=== PATIENT | male | born 1960 | race Caucasian/White ===

== ENCOUNTER 2022-06-20 14:30 | Outpatient (RCR) | payer BC, SELFPAY | END 2022-07-09 09:10 | disposition home or self-care (01) | LOC: ANHDMC 14:30 | PROVIDERS: PCP Internal Medicine; Visit Provider Internal Medicine Endocrinology, Diabetes & Metabolism | DX: E11.65 Type 2 diabetes mellitus with hyperglycemia (principal); Z71.89 Other specified counseling | CPT/HCPCS: G0108; G0109 ==

== ENCOUNTER 2022-10-11 14:12 | Outpatient (RCR) | payer BC, SELFPAY | END 2022-11-09 13:23 | disposition home or self-care (01) | LOC: ANHDMC 14:12 | PROVIDERS: PCP Internal Medicine; Visit Provider Internal Medicine Endocrinology, Diabetes & Metabolism | DX: E11.65 Type 2 diabetes mellitus with hyperglycemia (principal); Z71.89 Other specified counseling | CPT/HCPCS: G0109 ==

== ENCOUNTER 2024-09-03 00:27 | Day surgery (SDC) | payer BC, SELFPAY ==
[2024-08-17 12:18] VITALS: BMI 25.1
[2024-09-03 06:21] VITALS: BP 142/83; PULSE 61; RESP 18; TEMP 36.3; O2SAT 100
[2024-09-03 06:33] VITALS: BMI 25.0
--- NOTE | 2024-09-03 06:35 | SUR.PREOP ---
Patients blood glucose is 82. Patient has continuous glucose monitor and used phone for accucheck.
[2024-09-03] MEDS: LACTATED RINGERS 1,000 ML 150 ML IV CONT (06:46)
--- NOTE | 2024-09-03 07:02 | P.PNAN_ITS ---
Anes - Initial Pre Proc Eval Procedure: Operation Date: 09/03/24 07:30 Proposed Procedures p Esophagogastroduodenoscopy - Juancarlos Michaels MD Date/Time: 09/03/24 07:02 Surgeon: Juancarlos Michaels MD Pre Op Diagnosis: GERD Patient Data Age: 64 Gender: M Height: 1.83 m Weight: 83.9 kg Last Vital Signs Temp 36.3 C L 09/03/24 06:21 Pulse 61 09/03/24 06:21 Resp 18 09/03/24 06:21 BP 142/83 H 09/03/24 06:21 Pulse Ox 100 09/03/24 06:21 O2 Del Method Room Air 09/03/24 06:21 Allergies Allergy/AdvReac Type Severity Reaction Status Date / Time adhesive Allergy Unknown unknown Verified 09/03/24 06:31 Home Medications ?Medication ?Instructions ?Recorded ?Confirmed ?Type allopurinol 100 mg tablet 100 mg PO DAILY 12/03/19 09/03/24 History fenofibric acid (choline) 135 mg 135 mg PO DAILY 12/03/19 09/03/24 History capsule,delayed release (Trilipix) lisinopril 5 mg tablet 5 mg PO DAILY 12/03/19 09/03/24 History rosuvastatin 40 mg tablet (Crestor) 40 mg PO DAILY 12/03/19 09/03/24 History tamsulosin 0.4 mg capsule 0.4 mg PO DAILY 12/03/19 09/03/24 History multivitamin (One-A-Day Essential 1 tablet PO DAILY 02/14/22 09/03/24 History tablet) blood-glucose meter (Accu-Chek #1 ea 03/12/23 09/03/24 Rx Guide Me Glucose Meter) lancets (Accu-Chek Fastclix Lancet #200 ea 07/04/23 09/03/24 Rx Drum) pen needle, diabetic 32 gauge x #100 ea 12/23/23 09/03/24 Rx 5/32 (BD Sydnee 2nd Gen Pen Needle) insulin degludec 100 unit/mL (3 20 unit (0.2 mL) subcut DAILY #30 01/06/24 09/03/24 Rx mL) subcutaneous pen (Tresiba mL FlexTouch U-100 insulin) blood sugar diagnostic (Accu-Chek #100 strips 02/17/24 09/03/24 Rx Guide test strips) blood-glucose sensor (FreeStyle #6 ea 02/17/24 09/03/24 Rx Thomas 3 Sensor device) dapagliflozin propanediol 10 mg See Rx Instructions .Route 04/13/24 09/03/24 Rx tablet (Farxiga) .COMPLEX #90 tabs testosterone 30 mg/actuation (1.5 2 applic topical DAILY 90 days 06/15/24 09/03/24 Rx mL) transderm solution metered pump #270 mL levothyroxine 88 mcg tablet See Rx Instructions .Route 07/13/24 09/03/24 Rx .COMPLEX #90 tabs semaglutide 2 mg/dose (8 mg/3 mL) 2 mg (0.75 mL) subcut WEEKLY #9 mL 07/13/24 09/03/24 Rx subcutaneous pen injector (Ozempic) sildenafil 50 mg tablet See Rx Instructions .Route 07/20/24 09/03/24 Rx .COMPLEX #30 tabs Patient hx anesthesia problems: none Family hx anesthesia problems: none Results Review: All pre-operative results and documents have been reviewed as part of the pre- operative evaluation. FORMERLY [facility], [facility] Past Medical History Medical History Testicular hypofunction Body mass index (BMI) 23 or greater (07/04/18) Hyperlipidemia LDL goal <100 Insomnia Type 2 diabetes mellitus with hyperglycemia BMI 27.0-27.9,adult Hypothyroidism (acquired) Hernia Hypertension Surgical History Surgical History H/O hernia repair H/O rotator cuff surgery Family History Family History Mother Family history of osteoporosis Grandparent Family history of Alzheimer's disease Diabetes mellitus Social History Social History Smoking status: Former smoker Second hand tobacco smoke exposure: No Alcohol intake: former Substance use: former Substance use type: marijuana Other substance usage details: patient states he has not used marijuana in 20 years Lack of Transportation: No Lack of Food: Never True Current Housing: I Have Housing Concerned About Future Housing: No Difficulty Paying Gas/Electric Bills: No Difficulty Paying for Meds: No Currently Unemployed: No Education: Associate Degree Difficulty w/ Childcare or Family Care: No Living arrangements: with family Spiritual care concerns: No Anes - Eval Final PreProcedure Day of Procedure 09/03/24 07:02 Patient weight: normal Heart: regular rate and rhythm Lungs: clear to auscultation Airway: Mallampati scale class II Neurological: alert and oriented Last oral intake: >/= 8 hours ASA classification: III Emergent: no Anesthetic plan: proceed Anesthesia type and monitoring: general GIVS and standard monitoring Results Review: All pre-operative results and documents have been reviewed as part of the pre- operative evaluation. Informed Consent: The patient's anesthetic plan and its attendant risks and benefits were discussed with the patient/family/POA. Questions were solicited and answers provided to the satisfaction of the patient/family/POA.
--- NOTE | 2024-09-03 07:31 | PM.IMHP ---
H&P: HPI History of Present Illness Date/Time: 09/03/24 07:31 Chief Complaint: GERD Narrative: the patient has been experiencing daily episodes of heartburn for the past several months. He is currently taking pantoprazole 40 mg q.d. in the mornings and famotidine 20 mg at bedtime. He states he is fine while he takes his medicine but does not want to depend on any medication. He denies dysphagia, or unintentional weight loss. He is here for EGD. Review of Systems Review of Systems: All systems reviewed & are unremarkable except as noted in HPI and below PMFSH Past Medical History Medical History Testicular hypofunction Body mass index (BMI) 23 or greater (07/04/18) Hyperlipidemia LDL goal <100 Insomnia Type 2 diabetes mellitus with hyperglycemia BMI 27.0-27.9,adult Hypothyroidism (acquired) Hernia Hypertension Surgical History Surgical History H/O hernia repair H/O rotator cuff surgery Family History Family History Mother Family history of osteoporosis Grandparent Family history of Alzheimer's disease Diabetes mellitus Social History Social History Smoking status: Former smoker Second hand tobacco smoke exposure: No Alcohol intake: former Substance use: former Substance use type: marijuana Other substance usage details: patient states he has not used marijuana in 20 years Lack of Transportation: No Lack of Food: Never True Current Housing: I Have Housing Concerned About Future Housing: No Difficulty Paying Gas/Electric Bills: No Difficulty Paying for Meds: No Currently Unemployed: No Education: Associate Degree Difficulty w/ Childcare or Family Care: No Living arrangements: with family Spiritual care concerns: No Meds Home Medications and Allergies Home Medications ?Medication ?Instructions ?Recorded ?Confirmed ?Type allopurinol 100 mg tablet 100 mg PO DAILY 12/03/19 09/03/24 History fenofibric acid (choline) 135 mg 135 mg PO DAILY 12/03/19 09/03/24 History capsule,delayed release (Trilipix) lisinopril 5 mg tablet 5 mg PO DAILY 12/03/19 09/03/24 History rosuvastatin 40 mg tablet (Crestor) 40 mg PO DAILY 12/03/19 09/03/24 History tamsulosin 0.4 mg capsule 0.4 mg PO DAILY 12/03/19 09/03/24 History multivitamin (One-A-Day Essential 1 tablet PO DAILY 02/14/22 09/03/24 History tablet) blood-glucose meter (Accu-Chek #1 ea 03/12/23 09/03/24 Rx Guide Me Glucose Meter) lancets (Accu-Chek Fastclix Lancet #200 ea 07/04/23 09/03/24 Rx Drum) pen needle, diabetic 32 gauge x #100 ea 12/23/23 09/03/24 Rx 5/32 (BD Sydnee 2nd Gen Pen Needle) insulin degludec 100 unit/mL (3 20 unit (0.2 mL) subcut DAILY #30 01/06/24 09/03/24 Rx mL) subcutaneous pen (Tresiba mL FlexTouch U-100 insulin) blood sugar diagnostic (Accu-Chek #100 strips 02/17/24 09/03/24 Rx Guide test strips) blood-glucose sensor (FreeStyle #6 ea 02/17/24 09/03/24 Rx Thomas 3 Sensor device) dapagliflozin propanediol 10 mg See Rx Instructions .Route 04/13/24 09/03/24 Rx tablet (Farxiga) .COMPLEX #90 tabs testosterone 30 mg/actuation (1.5 2 applic topical DAILY 90 days 06/15/24 09/03/24 Rx mL) transderm solution metered pump #270 mL levothyroxine 88 mcg tablet See Rx Instructions .Route 07/13/24 09/03/24 Rx .COMPLEX #90 tabs semaglutide 2 mg/dose (8 mg/3 mL) 2 mg (0.75 mL) subcut WEEKLY #9 mL 07/13/24 09/03/24 Rx subcutaneous pen injector (Ozempic) sildenafil 50 mg tablet See Rx Instructions .Route 07/20/24 09/03/24 Rx .COMPLEX #30 tabs Allergies Allergy/AdvReac Type Severity Reaction Status Date / Time adhesive Allergy Unknown unknown Verified 09/03/24 06:31 Vital Signs Vital Signs - 24 hr 09/03/24 06:21 Temperature 97.4 F L Pulse Rate 61 Respiratory Rate 18 Blood Pressure 142/83 H Pulse Oximetry 100 Oxygen Delivery Room Air Exam Const: General: cooperative and healthy appearing Resp: Effort & Inspection: normal respiratory effort and able to speak in complete sentences Auscultation: clear to auscultation bilaterally Cardio: Rate: regular rate Rhythm: regular rhythm GI: Inspection: normal to inspection GI Palp: No No hepatosplenomegaly present Auscultation: normal bowel sounds Rectal Exam: deferred Skin: General skin exam: normal color Psych: Appearance: grossly normal Mental Status: mental status grossly normal Assessment and Plan Assessment and plan (1) GERD (gastroesophageal reflux disease): Code(s): K21.9 - Gastro-esophageal reflux disease without esophagitis Status: Acute Assessment and Plan: The patient is deemed a good candidate for the procedure. Consent signed. Will proceed.
[2024-09-03 07:43] VITALS: BP 126/72; PULSE 51; RESP 18; O2SAT 95
[2024-09-03 07:53] VITALS: BP 120/69; PULSE 47; RESP 17; O2SAT 94
[2024-09-03 08:03] VITALS: BP 134/76; PULSE 57; RESP 18; O2SAT 97
[2024-09-03 08:10] LABS: Glucose Point of Care 105 mg/dl (65-105)
== END 2024-09-03 08:22 | disposition home or self-care (01) ==
PROVIDERS: PCP Internal Medicine; Visit Provider Internal Medicine Gastroenterology
PROC: 0DJ08ZZ Inspection of Upper Intestinal Tract, Via Natural or Artificial Opening Endoscopic (ICD-10-PCS; CPT 43239; principal; 2024-09-03 07:30)
DX: K21.00 Gastro-esophageal reflux disease with esophagitis, without bleeding (principal); K29.50 Unspecified chronic gastritis without bleeding; K31.84 Gastroparesis; E11.65 Type 2 diabetes mellitus with hyperglycemia; E03.9 Hypothyroidism, unspecified; I10 Essential (primary) hypertension; E29.1 Testicular hypofunction; G47.00 Insomnia, unspecified; Z79.4 Long term (current) use of insulin; Z79.84 Long term (current) use of oral hypoglycemic drugs; Z79.85 Long-term (current) use of injectable non-insulin antidiabetic drugs; Z98.890 Other specified postprocedural states; Z87.891 Personal history of nicotine dependence
CPT/HCPCS: 43239; 82948; 88305; J2003; J2704; J7120

== ENCOUNTER 2025-03-24 07:11 | Outpatient (CLI) | payer BC, SELFPAY ==
--- NOTE | ~2025-03-24 | US_ITS ---
US retroperitoneal duplex ltd INDICATION: Hepatosplenomegaly PROCEDURE: Realtime right upper abdominal ultrasound. COMPARISON: No prior studies for comparison. FINDINGS: Pancreas not visualized due to bowel gas. Liver echotexture is increased without focal mass . Mild intrahepatic biliary dilatation. Common bile duct 2.9 mm. Spleen is enlarged measuring 14.2 cm . Right kidney contains a 1 cm exophytic cyst. Right kidney measures 11.6 cm. No hydronephrosis or so lid mass. Right portal vein is patent. Left portal vein not visualized due to bowel gas. IMPRESSION: 1: Splenomegaly. Reviewed, dictated and finalized at location A. IMPRESSION: 1: Splenomegaly.
--- NOTE | ~2025-03-24 | US_ITS ---
Limited Abdominal Sonogram: Real-time sonographic imaging of the right upper quadrant was performed. Clinical History: Hepatosplenomegaly Findings: The liver appears normal with no evidence of mass lesion or bile duct dilatation. Main por david vein demonstrates normal direction of flow. The gallbladder is well distended, and appears normal with no evidence of gallstone or wall thickening. The common bile duct measures 3 mm. The visualize d pancreas, aorta, and IVC are unremarkable. Right kidney measures 11.67 m in length. No hydronephros is or stone evident. Right renal echogenicity is mildly increased. Spleen measures 14.2 cm in length. Impression: Mild splenomegaly. Echogenic right kidney suggests chronic medical renal disease. Reviewed, dictated and finalized at location . Impression: Mild splenomegaly. Echogenic right kidney suggests chronic medical renal disease.
--- OUTSIDE RECORDS SUMMARY | 2025-03-24 07:17 | XMS_ITS | Clinical Summary ---
Author Organization [facility] [employer] [facility] Address [address] [place] [address] Care Team Providers Care Pipe Line Walker Name Role Phone Yohannes Ambrocio MD Primary Care Provider [phone] Source Comments [facility] [employer] [facility],non-owned Affiliates and Associated Physician Practices is amultiple site organization consisting of ambulatory clinics and hospital sitesin [place], [place], [place] and [place]. This disclosure is being madepursuant to the Care Everywhere program and may not contain all information available regarding this patient. Last updated 18.[employer] Allergies No known active allergies Medications * Be aware that medications may not be up to date on this document. Alwaysverify current medications with the patient. lisinopril (PRINIVIL;ZESTRI L) 5 MG tablet Take 5 mg by mouth once daily. Active allopurinol (ZYLOPRIM) 100 MG tablet Take 100 mg by mouth once daily. Active Choline Fenofibrate (TRILIPIX PO) Take 135 mg by mouth once daily. Active rosuvastatin (CRESTOR) 40 MG tablet Take 40 mg by mouth once daily. Active metFORMIN (GLUCOPHAGE) 500 MG tablet Take 500 mg by mouth 2 times daily with morning and evening meal. Active levothyroxine (SYNTHROID) 50 MCG tablet Take 50 mcg by mouth daily before breakfast. Active benzonatate (TESSALON) 100 MG capsuleIndicatio ns:Cough Take 1 capsule by mouth 3 times daily as needed for Cough Reasons: Cough 30 capsule 8 Active albuterol HFA (PROVENTIL;JORGE BLADIMIR;PROAIR) 108 (90 BASE) MCG/ACT inhalerIndicatio ns:Acute bronchitis, unspecified organism Inhale 2 puffs by mouth every 4 hours as needed for Shortness of Breath 3 Inhaler 3 8 Active SITagliptin Phosphate (JANUVIA PO) Active methylPREDNISolo ne (MEDROL DOSEPAK) 4 MG tabletIndication s:Acute bronchitis, unspecified organism Take by mouth as directed 1 Each 8 Active Active Problems Problem Noted Date Diagnosed Date Arm laceration 04/24/2012 Immunizations Immunization Administration Dates Next Due TDAP (7yrs+) 04/24/2012 Social History Tobacco Use Types Packs/Day Years Used Date Smoking Tobacco: Never Smokeless Tobacco: Never Alcohol Use Standard Drinks/Week Comments No 0 (1 standard drink = 0.6 oz pur e alcohol) Sex and Gender Information Value Date Recorded Sex Assigned at Not on file Legal Sex Male 10:16 AM ORGANIC PREPARATION ANALYST Gender Identity Not on file Sexual Orientation Not on file Last Filed Vital Signs Vital Sign Reading Time Taken Comments Blood Pressure 142/80 10/05/2017 12:00 PM ORGANIC PREPARATION ANALYST Pulse 63 10/05/2017 12:00 PM ORGANIC PREPARATION ANALYST Temperature 36.9 C (98.4 F) 10/05/2017 12:00 PM ORGANIC PREPARATION ANALYST Respiratory Rate 17 09/28/2017 10:54 AM ORGANIC PREPARATION ANALYST Oxygen Saturation 97% 10/05/2017 12:00 PM ORGANIC PREPARATION ANALYST Inhaled Oxygen Concentration - - Weight 90.7 kg (200 lb) 10/05/2017 12:00 PM ORGANIC PREPARATION ANALYST Height 182.9 cm (6') 10/05/2017 12:00 PM ORGANIC PREPARATION ANALYST Body Mass Index 27.12 10/05/2017 12:00 PM ORGANIC PREPARATION ANALYST Plan of Treatment Health Maintenance Due Date Last Done Comments COLOGUARD (AGES 45-75) - COLON CA SCREENING 1962 COLON MONITORING 1962 COLONOSCOPY - COLON CA SCREENING 1962 CT COLONOGRAPHY - COLON CA SCREENING 1962 Colorectal Cancer Screening 1962 FIT - COLON CA SCREENING 1962 FLEX SIG - COLON CA SCREENING 1962 HIV SCREENING 1977 HEPATITIS C SCREENING 02/28/1980 PNEUMOCOCCAL VACCINE 50+ (1 of 1 - PCV) 2012 ZOSTER VACCINE (1 of 2) 2012 SCREENING FOR DIABETES 09/28/2017 4, 11/08/2013, 11/08/2013, Additional history exists DTAP/TDAP/TD VACCINES (2 - Td or Tdap) 04/24/2022 04/24/2012 COVID-19 VACCINE ( - season) 2024 DEPRESSION SCREENING 08/26/2024 INFLUENZA VACCINE (#1) 2025 Respiratory Syncytial Virus (RSV) Vaccine Pt: or over 60 yrs (1 - 1-dose 75+ series) 2037 HEPATITIS B VACCINE Aged Out No longe r eligible based on patient's age to complete this topic HIB VACCINE Aged Out No longer eligi ble based on patient's age to complete this topic HPV VACCINE Aged Out No longer eligi ble based on patient's age to complete this topic MENINGOCOCCAL (Group B) VACCINE SHARED DECISION-MAKING Aged Out No longer eligible based on patient's age to complete this topic MENINGOCOCCAL GROUPS A/C/Y/W VACCINE Aged Out No longer eligible based on patient's age to complete this topic Procedures Procedure Name Priority Date/Time Associated Diagnosis Comments BASIC METABOLIC PANEL (CALCIUM TOTAL) AM Draw 11/08/2013 4:20 AM CDT Hypotension Dizzy Dizziness Arm laceration from Last 3 Months or Most Recently Relevant to Health Maintenance Results * (ABNORMAL) BASIC METABOLIC PANEL (CALCIUM TOTAL) (11/08/2013 4:20 AM CDT) Glucose 153(H) 74 - 106 mg/dL 11/08/2013 5:23 AM CDT [facility] Sodium 139 136 - 145 mmol/L 11/08/2013 5:23 AM CDT [facility] Potassium 3.4(L) 3.5 - 5.1 mmol/L 11/08/2013 5:23 AM CDT [facility] Chloride 109(H) 98 - 107 mmol/L 11/08/2013 5:23 AM CDT [facility] CO2 26 22 - 31 mmol/L 11/08/2013 5:23 AM CDT [facility] Calcium 7.3(L) 8.5 - 10.1 mg/dL 11/08/2013 5:23 AM CDT [facility] Anion Gap 4(L) 5 - 15 mmol/L 11/08/2013 5:23 AM CDT [facility] BUN 15 7 - 21 mg/dL 11/08/2013 5:23 AM CDT [facility] Creatinine 0.70 0.50 - 1.30 mg/dL 11/08/2013 5:23 AM CDT [facility] eGFR by MDRD >60 >60 mL/min/1.7 3m2 11/08/2013 5:23 AM CDT [facility] eGFR by MDRD >60 >60 mL/min/1.7 3m2 11/08/2013 5:23 AM CDT [facility] Blood BLOOD SPECIMEN / Unknown 11/08/2013 4:20 AM CDT 11/08/2013 5:03 AM CDT Kathie Escalante MD LAB - CHEMISTRY ORDERABLES Final Result Performing Organization Address City/State/[facility] Co de Phone Number [facility] [address] [place] [address] from Last 3 Months or Most Recently Relevant to Health Maintenance Insurance ANTHEM Advance Directives * Full Code (Latest Code Status on File) Date Activated Date Inactivated Comments 11/07/2013 4:41 AM 11/08/2013 2:04 PM Care Teams Pipe Line Walker Relationship Specialty Start Date End Date Yohannes Ambrocio MD [facility] [address] [place], [place] [id number] [facility] - General 04/24/12
--- OUTSIDE RECORDS SUMMARY | 2025-03-24 07:17 | XMS_ITS | Clinical Summary ---
Author Organization [facility] Address [address] [place] [address] [place] [address] Care Team Providers Care Earth Science Professor Name Role Phone Unavailable Primary Care Provider Unavailabl e Social History Tobacco Use Types Packs/Day Years Used Date Smoking Tobacco: Never Assessed Sex and Gender Information Value Date Recorded Sex Assigned at Not on file Legal Sex Male 6:36 PM SUPERVISOR POLICY CHANGE CLERKS Gender Identity Not on file Sexual Orientation Not on file Plan of Treatment Health Maintenance Due Date Last Done Comments DIABETES ANNUAL FOOT EXAM 1980 DIABETES ANNUAL RETINAL EXAM 1980 DIABETES HBA1C Q 6 MONTHS 1980 DIABETES MICROALBUMIN ANNUAL SCREEN 1980 LDL CHOLESTEROL ANNUAL 1980 COLORECTAL SCREENING 2007 Colorectal Cancer Screening 2007 FIT-DNA Q 3 years 2007 FIT/FOBT Q 1 year 2007 Flex Sig/CT Colonography Q 5 years 2007 RSV VACCINE (60+ or ) (1 - Risk 60-74 years 1-dose series) 2022 DTAP/TDAP/TD VACCINES (2 - T d or Tdap) 04/24/2022 04/24/2012 INFLUENZA VACCINE (#1) 2025 2, 05/26/2021, 05/31/2020, Additional history exists ZOSTER VACCINE Completed 03/07/2021, 08/30/2020 Insurance [place] [id number] [place] [address] [facility]
== END 2025-03-24 07:12 | disposition home or self-care (01) ==
PROVIDERS: PCP Internal Medicine; Referring Provider Nurse Practitioner Family; Visit Provider Nurse Practitioner
DX: R16.1 Splenomegaly, not elsewhere classified (principal); R74.01 Elevation of levels of liver transaminase levels; K76.0 Fatty (change of) liver, not elsewhere classified
CPT/HCPCS: 76705; 93976

== ENCOUNTER 2025-04-27 06:38 | Outpatient (CLI) | payer BC, SELFPAY ==
--- OUTSIDE RECORDS SUMMARY | 2009-09-19 03:15 | XMS_ITS | Continuity of Care Document ---
Author Organization [facility] Address [address] [place] [address] utive [facility] [address] [place] [address] Phone Care Team Providers Care Can Closing Machine Operator Name Role Phone Jeremie Murguia Unavailable Unavailable Procedures Procedure Date Office/outpatient Visit, [facility] Advance Directives Directive Yes / No Effective Date File Name No Information Encounters Encounter Description Practice Location Reason(s) For Visit Diagnoses Date Provider Providers Copied on Encounter Office/outpat ient Visit, [facility], [address], [place], [place], [id number], [place] tel:[phone] [facility] [place] No Information 0 Shantal Cainhil. [address] [facility] [address], [place], [address], [place]. tel:[phone] Family History Family Member Type Diagnosis Age At Onset No Information Payers Payer name Insurance type Covered democrat ID Authoriza tion(s) No Information Social History Type Description Quantity Date Captured Comments Sex Male Smoking Status No Information Chief Complaint And Reason For Visit No Information Reason For Referral Reason For Referral No Information History Of Present Illness Encounter Date Complaint History Of Prese nt Illness No Information Functional Status Date Functional Assessmen t No Information Instructions Date Instruction Additional Infor mation No Information Assessments Type Assessment Date No Information Patient Care Teams Name Effective Dates (start - stop) Status Members No Information
--- NOTE | ~2025-04-27 | MR_ITS ---
EXAMINATION: MR MRCP wo/w con/w 3D wo ind DATE: 04/27/2025 08:08 INDICATION: Abnormal findings on diagnostic imaging of liver TECHNIQUE: Magnetic resonance imaging (MRI) of the abdomen was performed without and with 17 mL Multihance intravenous contrast. Sequences included coronal T2- weighted SS-FSE, coronal T2-weighted FS SS-FSE, coronal T2-weighted FS FIESTA, axial T2-weighted FS FIESTA, axial T2-weighted FIESTA, sagittal T2-weighted SS- FSE, axial T1-weighted dual-echo FSPGR, axial T2-weighted SS-FSE, axial T1- weighted LAVA, axial T2-weighted STIR FSE. Thick-slab T2-weighted FRFSE-XL images were obtained for magnetic resonance cholangiopancreatography (MRCP). Rotating maximum intensity projection 3-D reconstructions of the volumetric data were created by the technologist. Postcontrast sequences included a time course of axial T1-weighted LAVA. COMPARISON: Ultrasound dated 03/24/2025 FINDINGS: ABDOMEN MRI: Heart size is normal. No pericardial or pleural effusion. Liver, gallbladder, pancreas, bilateral adrenal glands and left kidney are normal. 1 cm T2 hyperintense nonenhancing right renal cyst. Mild splenomegaly measuring 15.1 cm craniocaudal length and 9.6 x 5.5 cm maximal orthogonal dimensions. There is a 1.5 x 1.2 cm nodule situated between the anterior body the pancreas and the posterior margin of the gastric antrum which appears to be separate from both by thin intervening fat plane on both the LAVA and in and opposed phase T1-weighted imaging which suggests a mildly enlarged mesenteric lymph node. No other pathologically enlarged abdominal lymphadenopathy. There are few scattered clonic diverticula without adjacent from trace stranding to suggest diverticular colitis. No bowel obstruction. ABDOMEN MRCP: No intrahepatic biliary ductal dilation. Common hepatic duct is normal in caliber measuring 5 mm which tapers to a normal caliber 4 mm in the common bile duct. No evident cholelithiasis or choledocholithiasis. IMPRESSION: 1. Mild splenomegaly measuring 15.1 cm in maximal length but appearing normal in cross-sectional dimensions. 2. 1.5 x 1.2 cm nodule situated between the gastric antrum in the body the pancreas with suggestion of a thin intervening fat plane which would favor a mildly enlarged mesenteric lymph node over either a pancreatic mass or exophytic gastric lesion. Reviewed, dictated and finalized at location A. IMPRESSION: 1. Mild splenomegaly measuring 15.1 cm in maximal length but appearing normal i n cross-sectional dimensions. 2. 1.5 x 1.2 cm nodule situated between the gastric antrum in the body the panc reas with suggestion of a thin intervening fat plane which would favor a mildly enlarged mesenteric lymph node over either a pancreatic mass or exophytic jenni shaw lesion.
--- OUTSIDE RECORDS SUMMARY | 2025-04-27 06:41 | XMS_ITS | Clinical Summary ---
Author Organization [facility] Address [address] [place] [address] [place] [address] Care Team Providers Care Blueprint Cutter Name Role Phone Unavailable Primary Care Provider Unavailabl e Social History Tobacco Use Types Packs/Day Years Used Date Smoking Tobacco: Never Assessed Sex and Gender Information Value Date Recorded Sex Assigned at Not on file Legal Sex Male 6:36 PM MECHANICAL TECHNOLOGIST Gender Identity Not on file Sexual Orientation [...] ZOSTER VACCINE Completed 03/07/2021, 08/30/2020 Insurance [place] [id number] [place] [address] [facility]
--- OUTSIDE RECORDS SUMMARY | 2025-04-27 06:41 | XMS_ITS | Clinical Summary ---
Author Organization [facility] [employer] Address [address] [place] [address] Care Team Providers Care News Specialist Name Role Phone Yohannes Ambrocio MD Primary Care Provider [phone] Source Comments [facility] [employer],non-owned Affiliates and Associated Physician Practices is amultiple site organization consisting of ambulatory clinics and hospital sitesin [place], [place], [place] and [place]. This disclosure is being madepursuant to the Care Everywhere program and may not contain all information available regarding this patient. 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 DESIGN ENGINEER Gender Identity Not on file Sexual Orientation Not on file Last Filed Vital Signs Vital Sign Reading Time Taken Comments Blood Pressure 142/80 10/05/2017 12:00 PM MECHANICAL PRODUCT DESIGN ENGINEER Pulse 63 10/05/2017 12:00 PM MECHANICAL PRODUCT DESIGN ENGINEER Temperature 36.9 C (98.4 F) 10/05/2017 12:00 PM MECHANICAL PRODUCT DESIGN ENGINEER Respiratory Rate 17 09/28/2017 10:54 AM MECHANICAL PRODUCT DESIGN ENGINEER Oxygen Saturation 97% 10/05/2017 12:00 PM MECHANICAL PRODUCT DESIGN ENGINEER Inhaled Oxygen Concentration - - Weight 90.7 kg (200 lb) 10/05/2017 12:00 PM MECHANICAL PRODUCT DESIGN ENGINEER Height 182.9 cm (6') 10/05/2017 12:00 PM MECHANICAL PRODUCT DESIGN ENGINEER Body Mass Index 27.12 10/05/2017 12:00 PM MECHANICAL PRODUCT DESIGN ENGINEER Plan of Treatment Health Maintenance Due Date [...] >60 mL/min/1.7 3m2 11/08/2013 5:23 AM CDT [facility] Blood BLOOD SPECIMEN / Unknown 11/08/2013 4:20 AM CDT 11/08/2013 5:03 AM CDT Kathie Escalante MD LAB - CHEMISTRY ORDERABLES Final Result Performing Organization Address City/State/[facility] Co de Phone Number [facility] [address] [place] [address] from Last 3 Months or Most Recently Relevant to Health Maintenance Insurance ANTHEM Advance Directives * Full Code (Latest Code Status on File) Date Activated Date Inactivated Comments 11/07/2013 4:41 AM 11/08/2013 2:04 PM Care Teams News Specialist Relationship Specialty Start Date End Date Yohannes Ambrocio MD [facility] [address] [place], [place] [id number] [facility] - General 04/24/12
== END 2025-04-27 06:39 | disposition home or self-care (01) ==
LOC: ANHIMG 06:39
PROVIDERS: PCP Internal Medicine; Visit Provider Nurse Practitioner
DX: R93.2 Abnormal findings on diagnostic imaging of liver and biliary tract (principal); R16.1 Splenomegaly, not elsewhere classified; K86.9 Disease of pancreas, unspecified; R74.01 Elevation of levels of liver transaminase levels; R16.2 Hepatomegaly with splenomegaly, not elsewhere classified; K86.89 Other specified diseases of pancreas
CPT/HCPCS: 74183; 76376; A9577

== ENCOUNTER 2025-04-28 13:01 | Outpatient (RCR) | payer BC, SELFPAY ==
[2025-04-28 13:42] VITALS: BMI 26.3
== END 2025-07-13 11:20 | disposition home or self-care (01) ==
LOC: ANHDMC 13:01
PROVIDERS: PCP Internal Medicine; Visit Provider Internal Medicine
DX: R19.7 Diarrhea, unspecified (principal); Z71.3 Dietary counseling and surveillance
CPT/HCPCS: 97802